=== PATIENT | male | born 1950 | race Caucasian/White ===

== ENCOUNTER → 2020-09-05 | Outpatient (CLI) | payer OTHER, MEDICARE, MEDICAID ==
[~2020-09-05] MED LIST: ASMANEX TWISTHALER; ASPI81TA26 PO; ASPI81TA3; CIPR250T3; CLAR10CA3 PO; COMBIVENT; DOXAZOSIN MESYLATE; FLEXERIL; MELOPOW; MULT-90 PO; PAIN325T; PRIL20CA; PROS5TAB; PROV90AE; PROZ20CA; SAWPOW; SERO1TAB3; SIMV80TA; THERGRAN; VICO5TAB; [UNRECOGNIZED DRUG - REMARK]
== END ==
LOC: M LABSMTC 09:40
PROVIDERS: ATTEND Anesthesiology
DX: Z01.812 Encounter for preprocedural laboratory examination (principal); Z20.822 Contact with and (suspected) exposure to COVID-19

== ENCOUNTER 2020-09-10 14:01 | Day surgery (SDC) | payer OTHER ==
[~2020-09-10] VITALS: Ht 165.1 cm; Wt 100.7 kg
[~2020-09-10 14:01] MED LIST changes: +LR 1,000 ML IV ONE; +VANCOMYCIN HCL 1,000 MG, VIAL MATE ADAPTER 1 EACH in D5W 250 ML IV ONE
[2020-09-10] MEDS ORDERED: propofoL 200 MG/20 ML VIAL As Ordered ONE (14:32)
[2020-09-10] MEDS ORDERED: LIDOCAINE 2% 100MG/5ML SDV (FOR ANES.) As Ordered ONE (14:32)
[2020-09-10] MEDS ORDERED: MIDAZOLAM INJ 2MG/2ML VIAL (J2250 PER 1MG) As Ordered ONE (14:33)
[2020-09-10] MEDS ORDERED: LIDOCAINE 1% SDV 30ML VIAL As Ordered ONE (14:59)
--- NOTE | 2020-09-10 15:57 | RO ---
OPERATIVE NOTE DATE OF OPERATION: 09/10/2020 PREOPERATIVE DIAGNOSIS: Unexplained syncope. POSTOPERATIVE DIAGNOSIS: Unexplained syncope. FINDINGS: Unexplained syncope. PROCEDURE PERFORMED: Implantation of a subcutaneous cardiac rhythm monitor. SURGEON: Ephraim Shen M.D. RETORT LOADER: None. ANESTHESIA: Lidocaine 1% local / monitored anesthetic care. SPECIMENS: None. ESTIMATED BLOOD LOSS: Less than 3 mL. BLOOD PRODUCTS REPLACED: None. DRAINS: None. COMPLICATIONS: None. DESCRIPTION OF PROCEDURE: The patient was prepped and draped over the sternum and left anterior chest. Lidocaine 1% was used for local anesthetic. An incision was made with a #15 blade approximately 1 cm in length at the left fourth interspace about one inch lateral to the left parasternal border. The guide on the insertion tool was placed into the incision and advanced parallel to the anterior chest in an approximately 45-degree left lateral/caudal direction. The insertion tool was rotated 180 degrees. The plunger was placed into the insertion tool and used to advance the cardiac rhythm monitor into the subcutaneous tissue. The plunger was removed and then the insertion tool was removed leaving the loop recorder in situ. The initial R-wave amplitude measured 0.49 mV. The incision was then temporarily approximated using a 4-0 Biosyn suture applied subcuticular with the free ends of the suture material protruding 1 cm beyond the incision line on either end. Next, three layers of Dermabond was applied while Biosyn suture was kept under tension to keep the incision well-approximated. Next, the Biosyn suture was pulled through the incision line and removed entirely. The patient tolerated the procedure well without any immediate complications. The subcutaneous cardiac rhythm monitor implanted was a [employer]re[employer] Reveal LINQ; Model No. LNQ11 with Serial No. [id number].
[2020-09-10 17:07] VITALS: BP 179/96
== END 2020-09-10 17:07 | disposition home or self-care (01) ==
LOC: M SDC 14:01
PROVIDERS: ATTEND Internal Medicine Cardiovascular Disease
DX: R55 Syncope and collapse (principal); R07.9 Chest pain, unspecified; E78.5 Hyperlipidemia, unspecified; Z86.73 Personal history of transient ischemic attack (TIA), and cerebral infarction without residual deficits; F17.218 Nicotine dependence, cigarettes, with other nicotine-induced disorders; Z79.82 Long term (current) use of aspirin; Z88.0 Allergy status to penicillin
CPT/HCPCS: 33285; C1764; J2250; J3370

== ENCOUNTER → 2020-11-04 | Outpatient (CLI) | payer OTHER ==
[~2020-11-04] MED LIST changes: -LR 1,000 ML IV ONE; -VANCOMYCIN HCL 1,000 MG, VIAL MATE ADAPTER 1 EACH in D5W 250 ML IV ONE
--- NOTE | 2020-11-05 13:39 | SLEEPHOME ---
DATE: 11/04/2020 ORDERED BY: Dr. Shen Diagnostic home sleep testing was performed due to concern for the obstructive sleep apnea syndrome in this patient with a history of somnolence. For testing, a nocturnal T3 respiratory monitoring device was used. Continuous record was made of pulse, oxygen saturation, air flow, chest and abdominal strain, and body position. There was 9 hours and 59 minutes of data reviewed. There was 7 hours and 9 minutes reported as sleep time. During the interval marked sleep time, there were 349 respiratory events identified of 10 seconds in duration or greater for a respiratory event index of 48.7. The events were primarily obstructive, though 41 mixed and central apneas were also seen. Baseline pulse rate 74 beats per minute. Pulse rate ranged 35-96. Baseline saturation was 89%. Saturations fell to 73%, and testing was performed in the both the supine and nonsupine positions. IMPRESSION: Abnormal home sleep testing with repetitive respiratory events and oxygen desaturations to 73% with a respiratory event index of 48.7 is consistent with the obstructive sleep apnea syndrome. RECOMMENDATION: The patient should be encouraged to undergo formal sleep evaluation.
== END ==
LOC: M SLEEP HO 09:56
PROVIDERS: ATTEND Internal Medicine Cardiovascular Disease
DX: R40.0 Somnolence (principal)

== ENCOUNTER → 2021-01-06 | Outpatient (CLI) | payer OTHER | LOC: M LABSMTC 10:15 | PROVIDERS: ATTEND Anesthesiology | DX: Z01.812 Encounter for preprocedural laboratory examination (principal); Z20.828 Contact with and (suspected) exposure to other viral communicable diseases ==

== ENCOUNTER 2021-01-11 12:09 | Day surgery (SDC) | payer OTHER ==
[~2021-01-11] VITALS: Ht 167.6 cm; Wt 100.2 kg
[~2021-01-11 12:09] MED LIST changes: +LIDOCAINE 1% MDV 20ML VIAL SQ PRN; +LR 1,000 ML IV ONE; +VANCOMYCIN HCL 750 MG, VIAL MATE ADAPTER 1 EACH in NS 250 ML IV ONE
[2021-01-11] MEDS ORDERED: LIDOCAINE 1% SDV 30ML VIAL As Ordered ONE (12:47)
[2021-01-11] MEDS ORDERED: MUPIROCIN 2% OINT 22 GM TUBE As Ordered ONE (12:47)
[2021-01-11] MEDS ORDERED: ISOVUE-300 61% 50ML VIAL As Ordered ONE (12:47)
[2021-01-11] MEDS ORDERED: VANCOMYCIN 750MG/25ML VIAL As Ordered ONE (12:57)
[2021-01-11] MEDS ORDERED: MIDAZOLAM INJ 2MG/2ML VIAL (J2250 PER 1MG) As Ordered ONE (13:33)
[2021-01-11] MEDS ORDERED: fentaNYL 100 MCG/2 ML INJECTION (J3010) As Ordered ONE (13:33)
[2021-01-11] MEDS ORDERED: LIDOCAINE 2% 100MG/5ML SDV (FOR ANES.) As Ordered ONE (13:33)
[2021-01-11] MEDS ORDERED: propofoL 200 MG/20 ML VIAL As Ordered ONE ×2 (13:33→15:23)
[2021-01-11] MEDS ORDERED: EPINEPHrine 1MG/10ML SYRINGE 1.5IN As Ordered ONE (13:39)
--- NOTE | 2021-01-11 16:29 | REP ---
INDICATION: PACEMAKER, DUAL CHAMBER. COMPARISON: None. TECHNIQUE: A single view. 5 minutes 45 seconds of fluoroscopy time is reported. FINDINGS: A single last image hold fluoroscopically obtained spot radiograph of the chest documents pacemaker placement. IMPRESSION: Procedural imaging. <Electronically signed by Sin Shankar > 01/11/21 [id number]
--- NOTE | 2021-01-11 17:00 | REP ---
INDICATION: S/P PACEMAKER. COMPARISON: No comparison chest x-ray. TECHNIQUE: Portable upright AP chest radiograph. FINDINGS: Patient is rotated somewhat to the left. A trans venous bipolar pacemaker is seen installed via the left side. There is no evidence of pneumothorax. Cardiomegaly is observed. There is some fissural thickening on the right.. IMPRESSION: No evidence of pneumothorax. Cardiomegaly. Fissural thickening. Bipolar pacemaker in place.. <Electronically signed by Sin Shankar > 01/11/21 [id number]
[2021-01-11] MEDS ORDERED: PERCOCET 5MG/325MG TAB PO PRN (17:10)
[2021-01-11] MEDS ORDERED: ONDANSETRON 4MG/2ML VIAL IV PRN (17:10)
[2021-01-11] MEDS ORDERED: fentaNYL 100 MCG/2 ML INJECTION (J3010) IV PRN (17:10)
[2021-01-11] MEDS ORDERED: LR 1,000 ML IV SCH (17:10)
--- NOTE | 2021-01-11 17:20 | RO ---
OPERATIVE NOTE DATE OF OPERATION: 01/11/2021 PREOPERATIVE DIAGNOSES: 1. Sick sinus syndrome. 2. Subcutaneous rhythm monitor in situ. POSTOPERATIVE DIAGNOSES: 1. Sick sinus syndrome. 2. Subcutaneous rhythm monitor in situ. FINDINGS: 1. Sick sinus syndrome. 2. Subcutaneous rhythm monitor in situ. PROCEDURES PERFORMED: 1. Implantation of Medtronic dual-chamber pacemaker. 2. Removal of Medtronic subcutaneous cardiac rhythm monitor. SURGEON: Ephraim Shen M.D. BARKER PEELER: None. ANESTHESIA: Lidocaine 1% local/monitored anesthetic care. SPECIMENS: Old Medtronic subcutaneous cardiac rhythm monitor. ESTIMATED BLOOD LOSS: Less than 10 mL. BLOOD PRODUCTS: None replaced. DRAINS: None. COMPLICATIONS: None. DESCRIPTION OF PROCEDURE: The patient was prepped and draped over the left anterior chest. Lidocaine 1% was used for local anesthetic. A left subclavian venogram was performed using 20 mL of a mixture consisting of five parts Isovue and one part normal saline, which was injected via a peripheral vein in the left upper extremity. This was used in real-time with fluoroscopy to obtain percutaneous venous access to the extrathoracic portion of the left subclavian vein with a micropuncture needle. This was then guidewire exchanged for a guidewire that came with one of the 7-[place] sheaths. Next, an incision approximately 2.5 to 3 inches in length was made 1 cm below the skin entry side of the guidewire using a PEAK PlasmaBlade. The PEAK PlasmaBlade was used to then dissect down through the fatty layer and through the fibrous Dannie's fascia. The pacemaker pocket was then formed in a caudal directing using blunt dissection using two fingers to separate the Dannie's fascia from the prepectoral fascia. Next, the guidewire was pulled through the skin into the incision site. Next, I took another micropuncture needle and obtained a separate venipuncture at the level of the pectoral muscle about 1.5 cm lateral to the guidewire site into the pectoral muscle and used fluoroscopy under fluoroscopic guidance to get into the vein following the first guidewire. This guidewire was exchanged for a guidewire that came with the other 7-[place] sheath. Next, the 7-[place] sheath with introducer was placed over the more lateral of the guidewires and was used for vein access for the right ventricular lead. The right ventricular lead was placed into the right ventricular apex position where it was secured with a total of 10 turns. This position was found to be anatomically satisfactory and no diaphragm examination could be palpated on either side of the diaphragm with high output pacing. The ventricular lead was then secured to the pectoral muscle using the tie down sleeve and two separate sutures consisting of 0-Ethibond to secure it to the pectoral muscle. Next, the other 7-[place] sheath with introducer was placed over the more medial of the guidewires that was used for access with the right atrial lead. The right atrial lead was placed under fluoroscopic guidance into the right atrial appendage position where it was secured with a total of 10 turns. This position was found to be electrically and anatomically satisfactory. The preformed J-stylet was removed and the straight stylet was placed in part way to the atrial lead. The 7-[place] sheath was removed. The atrial lead was then secured to the pectoral muscle using the supplied tie down sleeve and using two individual sutures consisting of 0-Ethibond to secure it to the pectoral muscle. Next, another 0-Ethibond suture was placed to the pectoral muscle to serve as the tie down for the pacemaker pulse generator. Next, the terminal pins of the ventricle and atrial leads were plugged into their respective ports in the header of the pulse generator and each one secured by tightening the set screws with the hex screwdriver. A pull test was applied to each of the leads to demonstrate that it was secure within the header. The excess lead material was then placed below the pacemaker pulse generator and placed along with the pulse generator into the pacemaker pocket. The pacemaker pulse generator was then secured to the pectoral muscle with the previously placed 0-Ethibond suture. The deep layer was closed using individual sutures consisting of 2-0 Vicryl. A few additional 2-0 Vicryl sutures were used to help approximate the more superficial layer. The skin was then closed with marysol. Next, attention was turned to the removal of the subcutaneous cardiac rhythm monitor. An incision was made through the exiting incision. A snap was placed to layup worker the pulse generator and pull it out of the pocket. The skin was then closed using marysol. The final dressing applied to both incisions consisted of Bactroban ointment followed by Telfa followed by Bioclusive dressing. The pacemaker pulse generator implanted was a [employer] [place] XT MRI SureScan, which had Serial No. [id number]. The right atrial lead implanted was a Medtronic Model 4076 52 cm with Serial No. [id number]. Final testing for the right atrial lead in bipolar configuration with the pulse analyzer showed capture threshold of 1.125 volts at 0.4 msec with lead impedance of 570 ohms and P wave amplitude of 3.6 mV. Device based testing in the operating room for the right atrial lead showed P wave amplitude of 4.5 mV with lead impedance of 551 ohms and capture threshold of 0.5 volts at 0.4 msec. The right ventricle lead implanted was a Medtronic Model 4076 58 cm with Serial No. [id number]. Final testing with the pulse analyzer for the right ventricle lead in bipolar configuration showed a capture threshold of 1.0 volts at 0.4 msec with lead impedance of 950 ohms and R wave amplitude of 7 mV. Device based testing in the operating room for the right ventricle lead showed R wave amplitude of 9.8 mV with lead impedance of 779 ohms and capture threshold of 0.75 volts at 0.4 msec.
[2021-01-11] MEDS ORDERED: ACETAMINOPHEN TAB 650MG DOSE (2X325MG) PO PRN (17:40)
[2021-01-11 18:10] VITALS: BP 167/89
[2021-01-11 20:00] VITALS: BP 138/85
--- NOTE | 2021-01-11 21:16 | ECGEPIP ---
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
--- NOTE | 2021-01-11 21:21 | ECGEPIP ---
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: [place] : 1950 Requested By: Ephraim hSen Order Number: [id number] Reading MD: Abel Thomas Measurements Intervals [place] Rate: 81 P: 23 WI: 190 QRS: -52 QRSD: 138 T: -6 QT: 418 QTc: 485 Interpretive Statements Sinus rhythm with frequent ventricular-paced complexes--?atrial fibrillation when p paced ventricular complexes are present Right bundle branch block Left anterior fascicular block Bifascicular block Nonspecific T wave abnormality Compared to prior tracing of 01/11/2021, paced ventricular complexes and rhythm c change are new Electronically Signed on 01-11-2021 21:20:50 EDT by Abel Thomas
[2021-01-11] MEDS: ASCORBIC ACID 250 MG TAB PO SCH (21:48)
[2021-01-12] VITALS: BP 109/63
[2021-01-12 04:00] VITALS: BP 126/79
[2021-01-12 08:00] VITALS: BP 158/97
--- NOTE | 2021-01-12 08:06 | REP ---
INDICATION: post op dual chamber pacemaker COMPARISON: 01/11/2021 TECHNIQUE: PA and lateral. FINDINGS: Mediastinum and cardiac silhouette are within normal limits. Recently placed pacemaker in satisfactory position. Lung acevedo are clear. No consolidation, effusion, or pneumothorax. Skeletal structures intact. IMPRESSION: Satisfactory pacemaker placement. No consolidation, effusion, or pneumothorax. <Electronically signed by Cole Jama > 01/12/21 0802
[2021-01-12] MEDS ORDERED: MULTIVITAMINS/MINERALS THERAP 1 TAB PO SCH (09:00)
[2021-01-12] MEDS: ASCORBIC ACID 250 MG TAB PO SCH (09:55)
[2021-01-12 12:00] VITALS: BP 143/94
[2021-01-12] MEDS ORDERED: ACET1TAB55 PO (14:17)
[2021-01-13] MEDS ORDERED: ASPIRIN 81MG ENTERIC TABLET PO SCH (09:00)
== END 2021-01-12 15:31 | disposition home or self-care (01) ==
LOC: M SDC 12:09 → M PCU 18:07 → M SDC 01-12 15:31
PROVIDERS: ATTEND Internal Medicine Cardiovascular Disease
DX: I49.5 Sick sinus syndrome (principal); I25.10 Atherosclerotic heart disease of native coronary artery without angina pectoris; E78.00 Pure hypercholesterolemia, unspecified; J44.9 Chronic obstructive pulmonary disease, unspecified; G47.30 Sleep apnea, unspecified; F43.10 Post-traumatic stress disorder, unspecified; Z79.899 Other long term (current) drug therapy; Z79.82 Long term (current) use of aspirin; Z88.0 Allergy status to penicillin; Z86.73 Personal history of transient ischemic attack (TIA), and cerebral infarction without residual deficits; F17.218 Nicotine dependence, cigarettes, with other nicotine-induced disorders
CPT/HCPCS: 33208; 33286; 71045; 71046; 76000; 93005; C1785; C1898; J2250; J3010; J3370; Q9967

== ENCOUNTER → 2021-11-30 | Outpatient (CLI) | payer OTHER ==
[~2021-11-30] MED LIST changes: +ACET1TAB55 PO; -LIDOCAINE 1% MDV 20ML VIAL SQ PRN; -LR 1,000 ML IV ONE; -VANCOMYCIN HCL 750 MG, VIAL MATE ADAPTER 1 EACH in NS 250 ML IV ONE
[2021-12-02 23:12] LABS: PSA % FREE 19.2 % (.); PSA FREE 1.36 ng/mL; PSA TOTAL 7.1 ng/mL (0.0-4.0)
== END ==
LOC: M PLALAB 14:29
PROVIDERS: ATTEND Urology
DX: R97.20 Elevated prostate specific antigen [PSA] (principal)

== ENCOUNTER → 2022-01-21 | Outpatient (REF) | payer OTHER | LOC: M SMT 09:07 | PROVIDERS: ATTEND Urology | DX: R97.20 Elevated prostate specific antigen [PSA] (principal) ==

== ENCOUNTER 2022-09-16 12:03 | Inpatient (IN) | payer MEDICARE, OTHER ==
[~2022-09-16] VITALS: Ht 162.6 cm; Wt 91.7 kg
[2022-09-16 17:21] VITALS: BP 140/79
[2022-09-16] MEDS ORDERED: CENT1TAB PO (19:03)
[2022-09-16] MEDS ORDERED: HOME MED LIST COMPLETE! XX SCH (19:05)
[2022-09-16 20:00] VITALS: BP 115/70
[2022-09-16] MEDS ORDERED: VANCOMYCIN HCL 1,000 MG, VIAL MATE ADAPTER 1 EACH in NS 250 ML IV SCH (20:00)
[2022-09-16 20:13] LABS: HEMATOCRIT 36.8 % (42.0-52.0); HEMOGLOBIN 12.4 g/dl (13.5-17.5); MEAN CORPUSCULAR HEMOGLOBIN 32.3 pg (27.0-33.0); MEAN CORPUSCULAR HGB CONC 33.7 g/dl (32.0-36.5); MEAN CORPUSCULAR VOLUME 95.8 fl (80.0-96.0); PLATELET COUNT, AUTOMATED 150 10^3/uL (150-450); RED BLOOD COUNT 3.84 10^6/uL (4.30-6.10)
[2022-09-16 20:26] LABS: INR 1.2; PARTIAL THROMBOPLASTIN TIME 35.2 SECONDS (24.8-34.2); PROTHROMBIN TIME 15.5 SECONDS (12.5-14.5)
[2022-09-16 20:46] LABS: ALBUMIN 2.3 G/DL (3.2-5.2); ALKALINE PHOSPHATASE 121 U/L (46-116); ALT/SGPT 24 U/L (7.0-40); AST/SGOT 27 U/L (<34); BILIRUBIN,TOTAL 0.5 MG/DL (0.3-1.2); BLOOD UREA NITROGEN 9 MG/DL (9-23); CALCIUM LEVEL 8.4 MG/DL (8.3-10.6); CARBON DIOXIDE LEVEL 23 MMOL/L (20-31); CHLORIDE LEVEL 107 MMOL/L (98-107); CREATININE FOR GFR 0.95 MG/DL (0.70-1.30); GLOMERULAR FILTRATION RATE > 60.0 (>42); GLUCOSE, FASTING 151 MG/DL (74-106); POTASSIUM SERUM 3.6 MMOL/L (3.5-5.1); SODIUM LEVEL 138 MMOL/L (136-145); TOTAL PROTEIN 5.2 G/DL (5.7-8.2)
[2022-09-16] MEDS: AZTREONAM 2 GM in D5W MINI-BAG PLUS 100 ML IV SCH (21:50)
[2022-09-16] MEDS ORDERED: VANCOMYCIN HCL 1,000 MG, VIAL MATE ADAPTER 1 EACH in D5W 250 ML IV ONE (22:00)
[2022-09-16] MEDS ORDERED: VANCOMYCIN HCL 750 MG, VIAL MATE ADAPTER 1 EACH in D5W 250 ML IV ONE (23:00)
[2022-09-16 23:44] VITALS: BP 106/64
[2022-09-17] VITALS (11 sets, daily range): BP systolic 100–135; BP diastolic 59–79; O2SAT 89–96
[2022-09-17] MEDS: AZTREONAM 2 GM in D5W MINI-BAG PLUS 100 ML IV SCH ×3 (05:19→20:30)
[2022-09-17 05:40] LABS: HEMATOCRIT 35.2 % (42.0-52.0); HEMOGLOBIN 11.9 g/dl (13.5-17.5); MEAN CORPUSCULAR HEMOGLOBIN 32.4 pg (27.0-33.0); MEAN CORPUSCULAR HGB CONC 33.8 g/dl (32.0-36.5); MEAN CORPUSCULAR VOLUME 95.9 fl (80.0-96.0); PLATELET COUNT, AUTOMATED 182 10^3/uL (150-450); RED BLOOD COUNT 3.67 10^6/uL (4.30-6.10); WHITE BLOOD COUNT 6.4 10^3/uL (4.0-10.0)
[2022-09-17 06:09] LABS: BLOOD UREA NITROGEN 9 MG/DL (9-23); CALCIUM LEVEL 8.3 MG/DL (8.3-10.6); CARBON DIOXIDE LEVEL 26 MMOL/L (20-31); CHLORIDE LEVEL 107 MMOL/L (98-107); CREATININE FOR GFR 0.94 MG/DL (0.70-1.30); GLOMERULAR FILTRATION RATE > 60.0 (>42); GLUCOSE, FASTING 97 MG/DL (74-106); POTASSIUM SERUM 3.9 MMOL/L (3.5-5.1); SODIUM LEVEL 138 MMOL/L (136-145)
[2022-09-17 08:12] LABS: VANCOMYCIN RANDOM 10.6 UG/ML
[2022-09-17] MEDS ORDERED: propofoL 200 MG/20 ML VIAL As Ordered ONE (09:34)
[2022-09-17] MEDS ORDERED: LIDOCAINE 2% 100MG/5ML SDV (FOR ANES.) As Ordered ONE (09:34)
[2022-09-17] MEDS ORDERED: MIDAZOLAM INJ 2MG/2ML VIAL As Ordered ONE (09:35)
[2022-09-17] MEDS ORDERED: fentaNYL 100 MCG/2 ML INJECTION As Ordered ONE (09:35)
[2022-09-17] MEDS ORDERED: CETACAINE SPRAY 5GM As Ordered ONE (09:39)
[2022-09-17] MEDS ORDERED: LIDOCAINE VISCOUS 2% SOLN 15ML UDC As Ordered ONE (09:39)
[2022-09-17] MEDS: PANTOPRAZOLE 40MG TAB (PROTONIX) PO SCH (13:02)
[2022-09-17] MEDS: ASPIRIN 81MG ENTERIC TABLET PO SCH (13:02)
[2022-09-17] MEDS: VANCOMYCIN HCL 1,000 MG, VIAL MATE ADAPTER 1 EACH in D5W 250 ML IV SCH ×2 (13:03→21:53)
[2022-09-17] MEDS: ENOXAPARIN 40MG/0.4ML SYRINGE (J1650 PER 10MG) SC SCH (13:03)
[2022-09-18] VITALS (10 sets, daily range): BP systolic 100–114; BP diastolic 58–75; O2SAT 88–93
[2022-09-18] MEDS: AZTREONAM 2 GM in D5W MINI-BAG PLUS 100 ML IV SCH ×3 (05:05→20:01)
[2022-09-18 05:06] LABS: HEMATOCRIT 36.7 % (42.0-52.0); HEMOGLOBIN 12.1 g/dl (13.5-17.5); MEAN CORPUSCULAR HEMOGLOBIN 31.8 pg (27.0-33.0); MEAN CORPUSCULAR VOLUME 96.3 fl (80.0-96.0); PLATELET COUNT, AUTOMATED 177 10^3/uL (150-450); RED BLOOD COUNT 3.81 10^6/uL (4.30-6.10); WHITE BLOOD COUNT 5.8 10^3/uL (4.0-10.0)
[2022-09-18 05:31] LABS: BLOOD UREA NITROGEN 9 MG/DL (9-23); CALCIUM LEVEL 8.5 MG/DL (8.3-10.6); CARBON DIOXIDE LEVEL 26 MMOL/L (20-31); CHLORIDE LEVEL 109 MMOL/L (98-107); CREATININE FOR GFR 0.95 MG/DL (0.70-1.30); GLOMERULAR FILTRATION RATE > 60.0 (>42); GLUCOSE, FASTING 102 MG/DL (74-106); POTASSIUM SERUM 3.8 MMOL/L (3.5-5.1); SODIUM LEVEL 140 MMOL/L (136-145)
[2022-09-18] MEDS: ENOXAPARIN 40MG/0.4ML SYRINGE (J1650 PER 10MG) SC SCH (09:00)
[2022-09-18] MEDS: ASPIRIN 81MG ENTERIC TABLET PO SCH (09:28)
[2022-09-18] MEDS: VANCOMYCIN HCL 1,000 MG, VIAL MATE ADAPTER 1 EACH in D5W 250 ML IV SCH ×2 (09:28→21:33)
[2022-09-18] MEDS: PANTOPRAZOLE 40MG TAB (PROTONIX) PO SCH (09:28)
[2022-09-18] MEDS ORDERED: ACETAMINOPHEN TAB 650MG DOSE (2X325MG) PO PRN (21:00)
[2022-09-19 04:00] VITALS: BP 107/65
[2022-09-19] MEDS: AZTREONAM 2 GM in D5W MINI-BAG PLUS 100 ML IV SCH (05:10)
[2022-09-19] MEDS ORDERED: LevoFLOXacin 750 MG TABLET PO SCH (06:00)
[2022-09-19 08:00] VITALS: BP 130/86
[2022-09-19] MEDS ORDERED: LEVO1TAB40 PO ×2 (08:08→09:43)
[2022-09-19 08:25] LABS: HEMATOCRIT 40.2 % (42.0-52.0); HEMOGLOBIN 13.4 g/dl (13.5-17.5); MEAN CORPUSCULAR HEMOGLOBIN 32.2 pg (27.0-33.0); MEAN CORPUSCULAR HGB CONC 33.3 g/dl (32.0-36.5); MEAN CORPUSCULAR VOLUME 96.6 fl (80.0-96.0); PLATELET COUNT, AUTOMATED 197 10^3/uL (150-450); RED BLOOD COUNT 4.16 10^6/uL (4.30-6.10); WHITE BLOOD COUNT 8.2 10^3/uL (4.0-10.0)
[2022-09-19] MEDS: ASPIRIN 81MG ENTERIC TABLET PO SCH (08:25)
[2022-09-19] MEDS: ENOXAPARIN 40MG/0.4ML SYRINGE (J1650 PER 10MG) SC SCH (08:25)
[2022-09-19] MEDS: PANTOPRAZOLE 40MG TAB (PROTONIX) PO SCH (08:25)
[2022-09-19 08:45] LABS: VANCOMYCIN LEVEL TROUGH 10.4 UG/ML (10.0-20.0)
[2022-09-19 08:47] LABS: BLOOD UREA NITROGEN 9 MG/DL (9-23); CALCIUM LEVEL 8.8 MG/DL (8.3-10.6); CARBON DIOXIDE LEVEL 26 MMOL/L (20-31); CHLORIDE LEVEL 106 MMOL/L (98-107); CREATININE FOR GFR 0.95 MG/DL (0.70-1.30); GLOMERULAR FILTRATION RATE > 60.0 (>42); GLUCOSE, FASTING 105 MG/DL (74-106); POTASSIUM SERUM 3.7 MMOL/L (3.5-5.1); SODIUM LEVEL 139 MMOL/L (136-145)
== END 2022-09-19 10:41 | disposition home or self-care (01) | DRG 690 ==
LOC: M PCU 17:12
PROVIDERS: ADMIT Internal Medicine Nephrology; ATTEND Internal Medicine Nephrology
PROC: B246ZZZ Ultrasonography of Right and Left Heart (ICD-10-PCS; principal; 2022-09-17 09:30)
DX: N39.0 Urinary tract infection, site not specified (principal); N17.9 Acute kidney failure, unspecified; R78.81 Bacteremia; N40.1 Benign prostatic hyperplasia with lower urinary tract symptoms; Z95.0 Presence of cardiac pacemaker; I25.10 Atherosclerotic heart disease of native coronary artery without angina pectoris; E78.5 Hyperlipidemia, unspecified; K21.9 Gastro-esophageal reflux disease without esophagitis; Z85.46 Personal history of malignant neoplasm of prostate; Z79.899 Other long term (current) drug therapy; Z88.0 Allergy status to penicillin; Z20.822 Contact with and (suspected) exposure to COVID-19; B95.2 Enterococcus as the cause of diseases classified elsewhere; Z96.0 Presence of urogenital implants

== ENCOUNTER 2023-09-18 18:04 | Emergency (ER) | payer MEDICARE, OTHER ==
[~2023-09-18] VITALS: Ht 165.1 cm; Wt 95.5 kg
[~2023-09-18 18:04] MED LIST changes: +CENT1TAB PO; +LEVO1TAB40 PO
[2023-09-19] MEDS ORDERED: ALBUTEROL 90 MCG/ACT 8GM HFA INHALER INH ONE (02:05)
[2023-09-19] MEDS ORDERED: KETOROLAC 60MG 2ML VIAL IM ONE (02:05)
[2023-09-19] MEDS ORDERED: predniSONE 20 MG TAB PO ONE (02:05)
[2023-09-19] MEDS ORDERED: BENZONATATE 100MG CAPSULE PO ONE (02:10)
[2023-09-19 02:30] VITALS: BP 134/74
[2023-09-19] MEDS ORDERED: PRED20TA PO (02:31)
[2023-09-19] MEDS ORDERED: BENZ200C70 PO (02:31)
[2023-09-19 02:45] VITALS: TEMP 97.7; O2SAT 93
== END 2023-09-19 03:00 | disposition home or self-care (01) ==
LOC: EDBD 18:04 → M ED 18:04
DX: J20.9 Acute bronchitis, unspecified (principal); R07.89 Other chest pain; I45.10 Unspecified right bundle-branch block; I44.4 Left anterior fascicular block; F17.200 Nicotine dependence, unspecified, uncomplicated; Z86.79 Personal history of other diseases of the circulatory system; Z88.0 Allergy status to penicillin; Z88.8 Allergy status to other drugs, medicaments and biological substances; Z79.82 Long term (current) use of aspirin; Z79.52 Long term (current) use of systemic steroids; Z79.899 Other long term (current) drug therapy
CPT/HCPCS: 71046; 87486; 87581; 87633; 87798; 93005; 94640; 94664; 96372; 99284; J1885; J7512